=== PATIENT | male | born 1945 | race Caucasian/White ===

== ENCOUNTER 2016-05-16 10:22 | Emergency (ER) | payer OTHER ==
[2016-05-16 10:27] VITALS: TEMP 97.7
--- NOTE | 2016-05-16 10:37 | EDPHY ---
H & P Stated Complaint: recent R knee surg 05/07 constipation from Narcotics Time Seen by Provider: 05/16/16 10:36 - Personal History Current Tetanus/Diphtheria Vaccine: No Current Tetanus Diphtheria and Acellular Pertussis (TDAP): No - Medical/Surgical History Hx Asthma: No Hx Chronic Respiratory Disease: No Hx Diabetes: No Hx Cardiac Disease: No Hx Renal Disease: No Hx Cirrhosis: No Hx Alcoholism: No Hx HIV/AIDS: No Hx Splenectomy or Spleen Trauma: No Other PMH: r tkr, diverticulitis, appy - Social History Smoking Status: Former smoker Constitutional: Initial Vital Signs Temperature (C) 36.5 C 05/16/16 10:23 Heart Rate 110 H 05/16/16 10:23 Respiratory Rate 16 05/16/16 10:23 Blood Pressure 126/88 H 05/16/16 10:23 O2 Sat (%) 95 05/16/16 10:23 O2 Delivery Mode Nasal Cannula Allergies/Adverse Reactions: No Known Allergies Allergy (Unverified 03/25/15 17:58) Home Medications: Medication Instructions Recorded Anastrozole [Arimidex 1 mg (*)] 1 mg PO MOWEFR 08/05/15 Ascorbic Acid [Vitamin C 500 mg 1,000 mg PO DAILY 08/05/15 (*)] Cholecalciferol Vit D3 [Vitamin D3 5,000 units PO DAILY 08/05/15 (*)] Herbals/Supplements -Info Only 1 ea PO DAILY 08/05/15 Ibuprofen [Motrin (*)] 200 mg PO DAILY PRN 08/05/15 [place]-3 Fatty Acids [Fish Oil 1000 2,000 mg PO DAILY 08/05/15 mg (*)] Vitamin B Complex [B Complex] 1 each PO DAILY 08/05/15 Doxepin HCl [SINEquan 10 MG (*)] 10 mg PO HS PRN #0 cap 08/09/15 Testosterone Cypionate 0 mg IM Mo 08/09/15 [Testosterone Cypionate] oxyCODONE/APAP 5/325 [Percocet 1 - 2 tab PO Q4 PRN #30 tab 08/09/15 5/325 (*)] Medical Decision Making ED Course/Re-evaluation: CHIEF COMPLAINT: Constipation, abdominal pain. HISTORY OF PRESENT ILLNESS: The patient is a 70-year-old male with a history of diverticulitis and status post knee surgery 9 days he ago. He presents with abdominal pain and constipation that began after he began to take opiates from the surgery. His abdominal pain has been constant but is worsening today. He had a small BM today and has had two other small BMs since the surgery. He describes them as being golfball sized. He admits associated vomiting x2 today. He denies diaphoresis, chest pain, shortness of breath. He is anticoagulated on Coumadin. REVIEW OF SYSTEMS: A 10 point review of systems was performed and is negative with the exception of the elements mentioned in the history of present illness. PHYSICAL EXAM: HR, BP, O2 Sat, RR. Temp noted General Appearance: Acetone breath. Moderate distress. Alert, well hydrated, appropriate, and non-toxic appearing. Head: Atraumatic without scalp tenderness or obvious injury Eyes: Pupils equal, round, reactive to light and accommodation, EOMI, no trauma , no injection. Ears: Clear bilaterally, no perforation, normal landmarks Nose: Atraumatic, no rhinorrhea, clear. Throat: There is no erythema or exudates, no lesions, normal tonsils, mucus membranes moist. Neck: Supple, 2+ carotid upstroke, nontender, no lymphadenopathy. Respiratory: No retractions, no distress, no wheezes, and no accessory muscle use. Lungs are clear to auscultation bilaterally. Cardiovascular: Regular rate and rhythm, no murmurs, rubs, or gallops. Bilateral carotid, radial, dorsalis pedis, and posterior tibial pulses intact. Good capillary refill all extremities. Gastrointestinal: Diffuse abdominal tenderness. Abdomen is soft, non-distended , no masses, no peritoneal signs. Musculoskeletal: Normal active ROM of all extremities, atraumatic. Neurological: Alert, appropriate, and interactive. The patient has normal DTRs and non-focal cranial nerves, motor, sensory, and cerebellar exam. Skin: No rashes, good turgor, no nodules on palpation. Past medical history:Diverticulitis. Past surgical history:Knee surgery. Family history:Non-contributory. Social history:Here with . DIAGNOSTICS/PROCEDURES/CRITICAL CARE TIME: Study: CT of the abdomen. Indication: Pain, constipation. Results: Constipation, no perforation or obstruction. The study was read by the radiologist, Dr. Alexis. I viewed the images myself on the PACS system. DIFFERENTIAL DIAGNOSIS: The differential diagnosis for the patient's abdominal pain included but was not limited to appendicitis, cholecystitis, hernias, testicular torsion, gastritis, and urinary tract infection. MEDICAL DECISION MAKING: This is a 70-year-old male status post knee surgery 9 days ago. He has been taking opiate pain killers since that time and has had constipation and severe abdominal pain from the constipation. He has been able to pass a few golfball- sized chunks of stool on his own but nothing else over the past 9 days. He also has a history of diverticulitis. Because of his age and the possible of bowel obstruction or perforation, an abdominal CT was ordered. An IV was established and labs ordered. 1L IV saline administered for hydration, along with 1mg IV Dilaudid for pain. 1306: CT reported to me negative for bowel obstruction or perforation. It shows constipation. An enema was ordered. 1429: Patient had a large bowel movement after the enema and is feeling better. He will be discharged in good condition. He is comfortable with the plan. I answered all of his questions. He was given return precautions prior to discharge. - Data Points Laboratory Results: Laboratory Results 05/16/16 11:35 05/16/16 11:35 05/16/16 11:35 WBC 10.42 H 10^3/uL (3.80-9.50) RBC 4.10 L 10^6/uL (4.40-6.38) Hgb 13.7 g/dL (13.7-17.5) Hct 36.8 L % (40.0-51.0) MCV 89.8 fL (81.5-99.8) MCH 33.4 pg (27.9-34.1) MCHC 37.2 H g/dL (32.4-36.7) RDW 12.2 % (11.5-15.2) Plt Count 378 10^3/uL (150-400) MPV 8.3 L fL (8.7-11.7) Neut % (Auto) 89.6 H % (39.3-74.2) Lymph % (Auto) 4.3 L % (15.0-45.0) [place] % (Auto) 4.9 % (4.5-13.0) Eos % (Auto) 0.1 L % (0.6-7.6) Baso % (Auto) 0.3 % (0.3-1.7) Nucleat RBC Rel Count 0.0 % (0.0-0.2) Absolute Neuts (auto) 9.34 H 10^3/uL (1.70-6.50) Absolute Lymphs (auto) 0.45 L 10^3/uL (1.00-3.00) Absolute Monos (auto) 0.51 10^3/uL (0.30-0.80) Absolute Eos (auto) 0.01 L 10^3/uL (0.03-0.40) Absolute Basos (auto) 0.03 10^3/uL (0.02-0.10) Absolute Nucleated RBC 0.00 10^3/uL (0-0.01) Immature Gran % 0.8 % (0.0-1.1) Immature Gran # 0.08 10^3/uL (0.00-0.10) Sodium 135 mEq/L (134-144) Potassium 3.9 mEq/L (3.5-5.2) Chloride 98 mEq/L (97-110) Carbon Dioxide 23 mEq/l (22-31) Anion Gap 14 mEq/L (8-16) BUN 20 mg/dL (7-23) Creatinine 1.0 mg/dL (0.7-1.3) Estimated GFR > 60 Glucose 117 H mg/dL (70-100) Calcium 9.0 mg/dL (8.5-10.4) Total Bilirubin 2.3 H mg/dL (0.1-1.4) Conjugated Bilirubin 0.5 mg/dL (0.0-0.5) Unconjugated Bilirubin 1.8 H mg/dL (0.0-1.1) AST 57 IU/L (17-59) ALT 81 H IU/L (21-72) Alkaline Phosphatase 115 IU/L (38-126) Total Protein 6.6 g/dL (6.3-8.2) Albumin 3.7 g/dL (3.5-5.0) Lipase 46.0 IU/L (23-300) Medications Given: Discontinued Medications Hydromorphone HCl (Dilaudid) 1 mg IVP EDNOW ONE Stop: 05/16/16 11:22 Last Admin: 05/16/16 11:41 Dose: 1 mg Hydromorphone HCl (Dilaudid) 1 mg IVP EDNOW ONE Stop: 05/16/16 14:02 Last Admin: 05/16/16 14:02 Dose: 1 mg Sodium Chloride (Ns) 1,000 mls @ 0 mls/hr IV ONCE ONE PRN Reason: Wide Open Stop: 05/16/16 11:22 Last Admin: 05/16/16 11:41 Dose: 1,000 mls Departure - Departure Disposition: Home, Routine, Self-Care Clinical Impression: Constipation Condition: Good Instructions: Constipation (ED) Additional Instructions: Follow up with your primary care provider in the next 2-3 days if symptoms are not improving. Return to the emergency department if you experience serious worsening of condition. Referrals: Elana Marie MD [Primary Care Provider] - As per Instructions Report Scribed for: Barry Benjamin Report Scribed by: Michoacano Palomo Date of Report: 05/16/16 Time of Report: 11:28
[2016-05-16] MEDS ORDERED: NS 1,000 ML IV ONE (11:21)
[2016-05-16] MEDS ORDERED: HYDROmorphONE/DILAUDID 1 MG/ML SYR IVP ONE ×2 (11:21→14:01)
[2016-05-16] MEDS ORDERED: ONDANSETRON 4 MG/2 ML VIAL ONE (11:26)
[2016-05-16 11:50] LABS: % IMMATURE GRANULYOCYTES 0.8 % (0.0-1.1); ABSOLUTE IMMATURE GRANULOCYTES 0.08 10^3/uL (0.00-0.10); ADD DIFF? NO; ADD MORPH? NO; ADD SCAN? NO; ATYPICAL LYMPHOCYTE FLAG 0 (0-99); FRAGMENT RBC FLAG 0 (0-99); HEMATOCRIT 36.8 % (40.0-51.0); HEMOGLOBIN 13.7 g/dL (13.7-17.5); LEFT SHIFT FLG 20 (0-99); LIPEMIA HEMOLYSIS FLAG 90 (0-99); MEAN CELL HEMOGLOBIN 33.4 pg (27.9-34.1); MEAN CELL HEMOGLOBIN CONCENTR. 37.2 g/dL (32.4-36.7); MEAN CELL VOLUME 89.8 fL (81.5-99.8); MEAN PLATELET VOLUME 8.3 fL (8.7-11.7); PLATELET CLUMPS FLAG 0 (0-99); PLATELET COUNT 378 10^3/uL (150-400); RED CELL DISTRIBUTION WIDTH 12.2 % (11.5-15.2)
[2016-05-16 12:19] LABS: ALANINE AMINOTRANSFERASE 81 IU/L (21-72); ALBUMIN 3.7 g/dL (3.5-5.0); ALKALINE PHOSPHATASE 115 IU/L (38-126); ANION GAP 14 mEq/L (8-16); ASPARTATE AMINOTRANSFERASE 57 IU/L (17-59); BILIRUBIN,TOTAL 2.3 mg/dL (0.1-1.4); BILIRUBIN-CONJUGATED 0.5 mg/dL (0.0-0.5); BILIRUBIN-UNCONJUGATED 1.8 mg/dL (0.0-1.1); CARBON DIOXIDE 23 mEq/l (22-31); CHLORIDE 98 mEq/L (97-110); GLOMERULAR FILTRATION RATE > 60; GLUCOSE 117 mg/dL (70-100); POTASSIUM 3.9 mEq/L (3.5-5.2); SODIUM 135 mEq/L (134-144); TOTAL PROTEIN 6.6 g/dL (6.3-8.2)
[2016-05-16] MEDS ORDERED: IOPAMIDOL (ISOVUE-300) 100 ML BTL IV ONE (12:21)
[2016-05-16] MEDS ORDERED: HYDROmorphONE/DILAUDID 1 MG/ML SYR ONE (13:37)
[2016-05-16 14:05] VITALS: BP 110/60
[2016-05-16 14:55] VITALS: PULSE 97; RESP 16; O2SAT 94
--- NOTE | 2016-05-16 14:55 | CT ---
CT Scan of the Abdomen and Pelvis (With Contrast) Indication: Abdominal pain. No bowel movement for several days. Technique: No oral or rectal contrast. 90 mL of Isovue 300 were given intravenously by machine power injection. Multidetector helical CT imaging was performed from the diaphragm to the symphysis pubis . Dose reduction techniques were utilized. Comparison: CT abdomen and pelvis dated March 25, 2015. Findings: Large volume of retained stool is present throughout the left side of the colon down to the anal verge. A suture line in the mid sigmoid colon is widely patent. No low colonic obstruction. The transverse and ascending colon are mildly distended with fluid. Small bowel pattern is normal. The a ppendix is not visualized. No pneumoperitoneum, free fluid, abscess, lymphadenopathy or mass. The liver, spleen, pancreas, gallbladder, adrenal glands, and kidneys are normal. No nephrolithiasis or hydroureteronephrosis. Urinary bladder is normal. Lung bases are clear. The heart size is normal. The abdominal aorta has normal caliber with moderate calcified plaque. Severe degenerative disease at L4-L5 is evidenced by disk height loss, endplate scl erosis and erosions, and a broad-based disk bulge. Impression: 1. Marked constipation. No evidence of low colonic obstruction. Surgical anastomosis in the mid sigmo id is widely patent. 2. No free fluid, abscess or pneumoperitoneum. 3. Normal solid organs. Comment: Results were discussed with Dr. Barry Benjamin.
== END 2016-05-16 14:55 | disposition home or self-care (01) ==
DX: K59.00 Constipation, unspecified (principal); Z87.891 Personal history of nicotine dependence
CPT/HCPCS: 74177; 96374; 96376; 99285; J1170; J2405; Q9967

== ENCOUNTER → 2016-10-08 | Outpatient (CLI) | payer OTHER | LOC: BMCIMAGING 11:12 | PROVIDERS: ATTEND Internal Medicine | DX: M51.36 Other intervertebral disc degeneration, lumbar region (principal) ==

== ENCOUNTER 2017-07-02 14:26 | Emergency (ER) | payer OTHER ==
[2017-07-02] MEDS ORDERED: ONDANSETRON 4 MG/2 ML VIAL IVP ONE (14:45)
[2017-07-02] MEDS ORDERED: NS 1,000 ML IV ONE ×2 (14:45→16:02)
[2017-07-02] MEDS ORDERED: PROMETHAZINE HCL 25 MG/ML INJ IVP ONE (14:45)
[2017-07-02] MEDS ORDERED: DIAZEPAM 5 MG/ML 1 ML SYR IVP ONE ×2 (14:46→15:26)
--- NOTE | 2017-07-02 14:49 | EDPHY ---
H & P Time Seen by Provider: 07/02/17 14:35 HPI/ROS: CHIEF COMPLAINT: Nausea and vomiting HISTORY OF PRESENT ILLNESS: Patient is had a history of vertigo and Meniere's disease since 2009 and this feels identical to multiple previous episodes except for the severity of the vomiting. He is under the care of Dr. Soto from ear nose and throat and has had multiple diagnostic imaging and other modalities to work this up including MRI and CT, specialized testing at an ear center in [place], and ENT consultation. He has had some cough and nasal congestion and tenderness for the past month, but today at 11:00 a.m. Developed sudden worsening of his vertigo with severe nausea and vomiting. No hematemesis or coffee-ground emesis. A little bit worse with opening his eyes and moving around associated with his leg shaking. No chest pain headache double vision weakness or numbness in extremities or difficulty with speech or any other neurologic deficit. REVIEW OF SYSTEMS: Eye: no change in vision ENT: no sore throat, chronic tenderness Cardiac: no chest pain or syncope Pulmonary: no cough or SOB Abdomen: HPI no abdominal pain Musculoskeletal: no back pain or neck pain Skin: no rash Neuro: no headache Constitutional: no fever : no urinary symptoms A comprehensive 10 point review of systems is otherwise negative aside from elements mentioned in the history of present illness. PAST MEDICAL HISTORY: Includes restless leg, diverticulitis and appendectomy, history of peripheral vertigo. Right total knee Social history: here with his 36.8 General Appearance: Alert and conversant, cooperative. Eyes: No scleral icterus. Pupils equal reactive extraocular motion intact ENT, Mouth: Normal mucous membranes. Respiratory: Normal respiratory effort, breath sounds equal, lungs are clear to auscultation. Cardiovascular: Regular rate and rhythm. Gastrointestinal: Abdomen is soft and non tender. Neurological: Alert, face symmetric, normal motor and sensory in extremities. Good global marketing specialist strength bilaterally and normal [id number]. Toes downgoing. He does have restless legs with some increasing her shaking of both lower extremities, no clonus. Skin: Warm and dry, no rashes. Musculoskeletal: No peripheral edema. Psychiatric: Not agitated. 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 Does not appear that he requires further diagnostic studies , as this is a well defined recurrent illness with a history of extensive diagnostic and specialist workup, this presentation is identical to previous. IV Zofran 4 mg, Phenergan 12.5 mg, IV diazepam 5 mg. 1526: Additional 5 mg IV diazepam for worsening restless legs syndrome, kicking the bed. 1608: Feels better except his restless leg is worse, he would like to go home and take his medication there, which I think is reasonable. Alert and sitting on the edge of the bed, says he feels much better. His vertigo and vomiting is essentially resolved at this time and back to baseline. Smoking Status: Former smoker Constitutional: Initial Vital Signs Heart Rate 89 07/02/17 14:26 Respiratory Rate 16 07/02/17 14:26 Blood Pressure 149/75 H 07/02/17 14:26 O2 Sat (%) 97 07/02/17 14:26 O2 Delivery Mode Room Air Allergies/Adverse Reactions: No Known Allergies Allergy (Unverified 03/25/15 17:58) Home Medications: Medication Instructions Recorded Anastrozole [Arimidex 1 mg (*)] 1 mg PO MOWEFR 08/05/15 Ascorbic Acid [Vitamin C 500 mg 1,000 mg PO DAILY 08/05/15 (*)] Cholecalciferol Vit D3 [Vitamin D3 5,000 units PO DAILY 08/05/15 (*)] Herbals/Supplements -Info Only 1 ea PO DAILY 08/05/15 Ibuprofen [Motrin (*)] 200 mg PO DAILY PRN 08/05/15 [place]-3 Fatty Acids [Fish Oil 1000 2,000 mg PO DAILY 08/05/15 mg (*)] Vitamin B Complex [B Complex] 1 each PO DAILY 08/05/15 Doxepin HCl [SINEquan 10 MG (*)] 10 mg PO HS PRN #0 cap 08/09/15 Testosterone Cypionate 0 mg IM Mo 08/09/15 [Testosterone Cypionate] oxyCODONE/APAP 5/325 [Percocet 1 - 2 tab PO Q4 PRN #30 tab 08/09/15 5/325 (*)] Medical Decision Making Differential Diagnosis: Differential diagnosis considered for vertigo including but not limited to peripheral causes such as benign positional vertigo, Meniere's disease, viral labyrinthitis and central causes such as CVA, and tumor. - Data Points Laboratory Results: Laboratory Results 07/02/17 14:30 07/02/17 14:30 07/02/17 07/02/17 14:30 14:30 WBC 9.84 10^3/uL H 10^3/uL (3.80-9.50) RBC 4.78 10^6/uL 10^6/uL (4.40-6.38) Hgb 15.6 g/dL g/dL (13.7-17.5) Hct 42.3 % % (40.0-51.0) MCV 88.5 fL fL (81.5-99.8) MCH 32.6 pg pg (27.9-34.1) MCHC 36.9 g/dL H g/dL (32.4-36.7) RDW 11.9 % % (11.5-15.2) Plt Count 291 10^3/uL 10^3/uL (150-400) MPV 9.1 fL fL (8.7-11.7) Neut % (Auto) 80.4 % H % (39.3-74.2) Lymph % (Auto) 12.2 % L % (15.0-45.0) [place] % (Auto) 6.0 % % (4.5-13.0) Eos % (Auto) 0.4 % L % (0.6-7.6) Baso % (Auto) 0.5 % % (0.3-1.7) Nucleat RBC Rel Count 0.0 % % (0.0-0.2) Absolute Neuts (auto) 7.91 10^3/uL H 10^3/uL (1.70-6.50) Absolute Lymphs (auto) 1.20 10^3/uL 10^3/uL (1.00-3.00) Absolute Monos (auto) 0.59 10^3/uL 10^3/uL (0.30-0.80) Absolute Eos (auto) 0.04 10^3/uL 10^3/uL (0.03-0.40) Absolute Basos (auto) 0.05 10^3/uL 10^3/uL (0.02-0.10) Absolute Nucleated RBC 0.00 10^3/uL 10^3/uL (0-0.01) Immature Gran % 0.5 % % (0.0-1.1) Immature Gran # 0.05 10^3/uL 10^3/uL (0.00-0.10) Sodium 139 mEq/L mEq/L (135-145) Potassium 4.1 mEq/L mEq/L (3.5-5.2) Chloride 107 mEq/L mEq/L (97-110) Carbon Dioxide 19 mEq/l L mEq/l (22-31) Anion Gap 13 mEq/L mEq/L (8-16) BUN 21 mg/dL mg/dL (7-23) Creatinine 0.9 mg/dL mg/dL (0.7-1.3) Estimated GFR > 60 Glucose 154 mg/dL H mg/dL (70-100) Calcium 9.6 mg/dL mg/dL (8.5-10.4) Medications Given: Discontinued Medications Diazepam (Valium) 5 mg IVP EDNOW ONE Stop: 07/02/17 14:47 Last Admin: 07/02/17 14:51 Dose: 5 mg Diazepam (Valium) 5 mg IVP EDNOW ONE Stop: 07/02/17 15:27 Last Admin: 07/02/17 15:31 Dose: 5 mg Sodium Chloride (Ns) 1,000 mls @ 0 mls/hr IV EDNOW ONE; Wide Open PRN Reason: Protocol Stop: 07/02/17 14:46 Last Admin: 07/02/17 14:54 Dose: 1,000 mls Sodium Chloride (Ns) 1,000 mls @ 0 mls/hr IV EDNOW ONE; Wide Open PRN Reason: Protocol Stop: 07/02/17 16:03 Last Admin: 07/02/17 16:25 Dose: 1,000 mls Ondansetron HCl (Zofran) 4 mg IVP EDNOW ONE Stop: 07/02/17 14:46 Last Admin: 07/02/17 15:17 Dose: 4 mg Promethazine HCl (Phenergan) 12.5 mg IVP EDNOW ONE Stop: 07/02/17 14:46 Last Admin: 07/02/17 14:51 Dose: 12.5 mg Departure - Departure Disposition: Home, Routine, Self-Care Clinical Impression: Vertigo Condition: Good Instructions: Meniere Disease (ED), Vertigo (ED) Referrals: Elana Marie MD [Primary Care Provider] - As per Instructions
[2017-07-02 14:53] LABS: PLATELET COUNT 291 10^3/uL (150-400)
[2017-07-02 14:56] VITALS: TEMP 98.2
[2017-07-02 16:25] VITALS: BP 120/85; PULSE 92; RESP 20; O2SAT 92
== END 2017-07-02 16:25 | disposition home or self-care (01) ==
DX: R42 Dizziness and giddiness (principal); E86.9 Volume depletion, unspecified; Z87.891 Personal history of nicotine dependence
CPT/HCPCS: 96361; 96374; 96375; 96376; 99284; J2405; J2550; J3360